=== PATIENT | female | born 1955 | race Caucasian/White ===

== ENCOUNTER 2017-04-11 22:29 | Inpatient (IN) | payer MEDICARE, OTHER ==
--- NOTE | ~2017-04-11 | DS ---
Discharge Summary [facility] [address] [place]. [address] NAME: CHILO GARCIA : 53 STATUS : ADM IN [facility]#: [id number] AGE: 62 ADM/REG DATE : 04/12/17 MR#: [id number] REPORT SERV DATE: 04/17/17 DICTATED BY: ERIC RAMESH DATE: 04/17/17 REPORT STATUS : Draft TRANSCRIBED BY: MODBrayan DATE: 04/17/17 ADMISSION DATE: 04/12/2017 DISCHARGE DATE: 04/17/2017 REASON FOR ADMISSION: Xabtc-cc-otuoakt COPD exacerbation, yujgy-eo-msoxihe hypercapnic hypoxic respiratory failure, requiring BiPAP. HISTORY OF PRESENT ILLNESS: Please refer to Dr. Javan Tyler's history and physical dated 04/12/2017, for complete details regarding the patient's admission. In brief, the patient is admitted to the hospitalist service to the intermediate care unit for COPD exacerbation and hypoxic respiratory failure. HOSPITAL COURSE: The patient had an uncomplicated hospital course. The patient was admitted to the [facility] for hypoxic hypercapnic respiratory failure. She was placed on BiPAP and given steroids for COPD exacerbation, started on doxycycline. She had responded very well to BiPAP. She had been on it for about two to three days. Dr. Cannon was taking care of her in the [facility], then I assumed care of this patient on 04/14/2017, at which point we transferred her out of the [facility] and she is back to her baseline of 2 L nasal cannula. She was at one point as high as 5 L. We were able to wean her down. She does have some diminished breath sounds on exam, which is likely her baseline. She has reached maximal hospitalization. We are arranging for a functioning CPAP machine for her to take home with her once that is arranged, she will be discharged. DISCHARGE DIAGNOSES: Ymrmm-sw-lwwgpzf hypercapnic hypoxic respiratory failure. Continue BiPAP. Now resolved. Now at baseline 2 L nasal cannula. Joprz-xv-fsxksgq chronic obstructive pulmonary disease exacerbation, obstructive sleep apnea, on CPAP. Morbid obesity, hyperlipidemia, hypothyroidism, generalized anxiety disorder. PROCEDURES: Include chest x-ray. DISCHARGE MEDICATIONS: Include Duonebs p.r.n. wheezing, aspirin 81 mg daily, Lipitor 40 mg at bedtime, Januvia 100 mg daily, Bumex 1 mg daily, bupropion 150 mg twice a day, carvedilol 37.5 mg twice a day, digoxin 0.25 mg daily, Flonase p.r.n., Synthroid 300 mcg daily, losartan 50 mg daily, Relafen 500 mg twice a day, Prilosec daily, Advair 250/50 one puff twice a day, Spiriva two puffs daily, Antivert, Zofran, diazepam p.r.n., [place] p.r.n. Spending over 30 minutes in discharge planning and coordination of care on Ms. Garcia. She will be discharged today if we can arrange for a new CPAP machine. DICTATED BY: MD ALISHA Lopez/CHAN Discharge Summary [address] [address] NAME: CHILO GARCIA : 53 STATUS : ADM IN [facility]#: [id number] AGE: 62 ADM/REG DATE : 04/12/17 MR#: [id number] REPORT SERV DATE: 04/17/17 DICTATED BY: ERIC RAMESH DATE: 04/17/17 REPORT STATUS : Draft TRANSCRIBED BY: CHAN DATE: 04/17/17 Eric Ramesh MD / [id number] CC: DO Clyde Reyes M.D.
--- NOTE | ~2017-04-11 | DS ---
Discharge Summary [facility] [address] [facility] [address] [place]. [address] NAME: CHILO GARCIA : 53 STATUS : DIS IN PAT#: [id number] AGE: 62 ADM/REG DATE : 04/12/17 MR#: [id number] REPORT SERV DATE: 04/19/17 DICTATED BY: ERIC RAMESH DATE: 04/18/17 REPORT STATUS : Draft TRANSCRIBED BY: CHAN DATE: 04/18/17 ADMISSION DATE: 04/12/2017 DISCHARGE DATE: 04/18/2017 ADDENDUM: REASON FOR ADMISSION: Acute on chronic COPD exacerbation; acute on chronic hypercapnic- hypoxic respiratory failure, requiring BiPAP. HOSPITAL COURSE: Please refer to my discharge dictation dated 04/17/2017 for complete details regarding the patient's hospitalization discharge. The patient was initially scheduled to be discharged on 04/17/2017, however, we were having issues with her CPAP machine. [facility] had dropped off a used CPAP machine, but the patient was concerned that her mask would not fit the machine. We finally were able to get in touch with [facility] who reassured us that the patient's tubing and mask would actually fit; however, there is not an attachment separate for her oxygen. We were unable to fix this issue until the patient gets a chemistry laboratory technician and has an outpatient sleep study done. We are making arrangements for that. The patient will be discharged today in a stable condition. Please refer my initial discharge dictation for complete details regarding the patient's diagnoses, medications, and procedures. This is Dr. Eric Ramesh spending over 30 minutes discharge planning and coordination of care on Ms Garcia. DICTATED BY: MD ALISHA Lopez/CHAN Eric Ramesh MD / [id number] CC: MD Clyde Lopez M.D.
--- NOTE | ~2017-04-11 | HP ---
History And Physical [facility] [id number] [place]. [address] NAME: CHILO LANCASTER : 53 STATUS : ADM IN [facility]#: [id number] AGE: 62 ADM/REG DATE : 04/12/17 MR#: [id number] REPORT SERV DATE: 04/12/17 DICTATED BY: CAROLINA WAY DATE: 04/12/17 REPORT STATUS : Draft TRANSCRIBED BY: MODBrayan DATE: 04/12/17 DATE OF ADMISSION: 04/12/2017 CHIEF COMPLAINT: A 62-year-old female, presenting with shortness of breath lethargy. HISTORY OF PRESENTING ILLNESS: The patient's history was obtained through an interview with the patient and son coupled with review of [facility] and [facility]. The patient states that about a week ago, she just began to feel "sick." She thought that she had pneumonia at that time, but did not seek out a physician's care and was not placed on any antibiotics. She also states that her CPAP machine stopped working about a week ago exacerbating her illness. She has had a cough productive of yellowish sputum. She has had shortness of breath characterized by dyspnea on exertion. She has had nausea, vomiting, fevers, and chills. Of uncertain importance to this presentation is the fact that her 17-year-old grandchild (who lives in her home) developed Repton spotted fever within the last month, although he has recovered well. The patient describes increasing lethargy, confusion. No headache. The patient has had chest discomfort that she describes "in my ribs," exacerbated by coughing, sharp quality, a 3 to 4/10 severity only. REVIEW OF SYSTEMS: Otherwise, a 14-point review of systems was obtained and was negative. PAST MEDICAL HISTORY: 1. COPD, on chronic nasal cannula oxygen. 2. Obstructive sleep apnea, but states that her CPAP has been broken for about a week. 3. Chronic pain management with chronic back pain. 4. Diabetes. 5. Gastroesophageal reflux disorder, colon polyps, seen by Dr. Khanna. 6. Elevated cholesterol. 7. Hypertension. 8. Coronary artery disease status post CABG in 2008, followed by Dr. Murillo. 9. Uterine cancer, status post hysterectomy in 1985. 10.Migraine headaches. PAST SURGICAL HISTORY: 1. CABG in 2008. 2. Bladder tack. 3. Hysterectomy. 4. Cholecystectomy. 5. Tubal ligation. History And Physical [address] [place]. [address] NAME: CHILO LANCASTER : 53 STATUS : ADM IN PAT#: [id number] AGE: 62 ADM/REG DATE : 04/12/17 MR#: [id number] REPORT SERV DATE: 04/12/17 DICTATED BY: CAROLINA WAY DATE: 04/12/17 REPORT STATUS : Draft TRANSCRIBED BY: CHAN DATE: 04/12/17 ALLERGIES: TO PENICILLIN. SOCIAL HISTORY: The patient is a smoker. She does not drink alcohol. She lives in [place], [place]. She is a and has three children. She lives with three of her grandchildren, ages 17, 19, and 21. FAMILY HISTORY: Both mother and father had COPD and were heavy smokers. CURRENT MEDICATIONS: Include albuterol inhaler, aspirin 81 mg p.o. daily, Lipitor 40 mg p.o. daily, Bumex 1 mg p.o. daily, Wellbutrin XR 150 mg p.o. b.i.d., Coreg 37.5 mg p.o. b.i.d., digoxin 0.25 mg p.o. daily, Flonase inhaled twice a day, Advair inhaled twice a day, Synthroid 300 mcg p.o. daily, Cozaar 50 mg p.o. daily, Antivert t.i.d. p.r.n., Relafen 500 mg p.o. b.i.d., Macrobid 100 mg p.o. b.i.d., Prilosec 40 mg p.o. daily, Zofran p.r.n., Januvia 100 mg p.o. daily, Spiriva inhaled daily. PHYSICAL EXAMINATION: VITAL SIGNS: Temperature 97.5, pulse 86, blood pressure 132/71, respiratory rate 23, and O2 saturation 94% on 2 L nasal cannula. GENERAL: An ill-appearing female, in distress from labored breathing and very lethargic as well. HEENT: Pupils are equal, round, and reactive to light. No conjunctival pallor. No scleral icterus. Nares are patent. Oropharynx is clear of obstruction. Moist mucous membranes. NECK: Trachea midline. No thyromegaly. LYMPHATICS: No cervical lymphadenopathy. No supraclavicular lymphadenopathy. RESPIRATORY: Scattered inspiratory and expiratory wheezes. No rhonchi. No rales. Labored respiratory effort, heaving with abdomen with each breath. CARDIOVASCULAR: Regular rate and rhythm. No murmurs, rubs, or gallops. No extremity edema is appreciated. ABDOMEN: Soft, nontender, nondistended. Normal bowel sounds auscultated throughout. No hepatosplenomegaly. DERMATOLOGIC: Warm and dry extremities. No pallor. No cyanosis. PSYCHIATRIC: Normal affect. Good mood. Alert and oriented x3. LABORATORY DATA: White blood cell count 10.4, hemoglobin 14, hematocrit 46, platelets 325. Sodium 142, potassium 3.8, chloride 98, bicarb 41, BUN 7, creatinine 0.56, glucose 133. Brain natriuretic peptide 76. Troponin negative. Procalcitonin negative. Lipase 153, lactic acid 0.9. ABG demonstrates a pH of 7.28, a PaCO2 of 92, a PaO2 of 71, and a bicarb of 42. STUDIES: 1. Chest x-ray by my own evaluation shows COPD changes with no acute abnormality otherwise. 2. EKG by my own evaluation shows sinus rhythm, no major abnormalities. ASSESSMENT AND PLAN: 1. Hypercapnic respiratory failure, placed on BiPAP in the [facility]. History And Physical [address] [address] NAME: CHILO LANCASTER : 53 STATUS : ADM IN [facility]#: [id number] AGE: 62 ADM/REG DATE : 04/12/17 MR#: [id number] REPORT SERV DATE: 04/12/17 DICTATED BY: CAROLINA WAY DATE: 04/12/17 REPORT STATUS : Draft TRANSCRIBED BY: MODBrayan DATE: 04/12/17 2. Chronic obstructive pulmonary disease exacerbation, placed on IV Solu-Medrol, duo- nebulizers, doxycycline. 3. Obstructive sleep apnea. The patient's CPAP "broke" one week ago. Case management to follow the patient to make certain that she has a CPAP available and ready to use when she is discharged from the hospital. SUHA/CHAN Carolina Way M.D. / [id number] CC: Jeaneth Love M.D.
[~2017-04-11 22:29] MED LIST: ACET500CAP PO; ASAB PO; BUM1 PO; BUPROPION 150 MG; COREG25 PO; DEPO-ESTRAD5 MG/1 ML IM; DEPO-ESTRADI5 MG/ML IM; FIBERCON PO; FLONASE NAS; LAN25 PO; LORTAB10 PO; MAXIMUM D3 PO; NEXIUM40 PO; NORCO1 TAB PO; NORV5 PO; NTG150 SL; PR25 PO; PRAVACHOL40 MG PO; PRIN20 PO; PROAIR HFA INH; SPIRIVA INH; SPIRO25 PO; SYMBICORT 160/41 INH INH; SYN1 PO; SYN125 PO; SYNTHROID175 MCG PO; TENORETIC1 TA1 PO; VALIUM10 MG PO; WELLXL150 PO; ZOCOR20 PO; [UNRECOGNIZED DRUG - REMARK] OR
[2017-04-11] MEDS ORDERED: FLONASE NAS (23:45)
[2017-04-11] MEDS ORDERED: COREG25 PO (23:45)
[2017-04-11] MEDS ORDERED: LAN25 PO (23:46)
[2017-04-11] MEDS ORDERED: BUM1 PO (23:46)
[2017-04-11] MEDS ORDERED: LIPITOR40 PO (23:46)
[2017-04-11] MEDS ORDERED: SYN1 PO (23:46)
[2017-04-11] MEDS ORDERED: PRILOSEC40 MG PO (23:46)
[2017-04-11] MEDS ORDERED: ADVAIR250 INH (23:47)
[2017-04-11] MEDS ORDERED: JANUVIA100 MG PO (23:47)
[2017-04-11] MEDS ORDERED: SPIRIVA RESPIMAT INH (23:47)
[2017-04-11] MEDS ORDERED: PROAIR HFA INH (23:47)
[2017-04-11] MEDS ORDERED: MACROBID PO (23:47)
[2017-04-11] MEDS ORDERED: WELLXL150 PO (23:48)
[2017-04-11] MEDS ORDERED: ZOFRAN4 PO (23:48)
[2017-04-11] MEDS ORDERED: RELA5 PO (23:48)
[2017-04-11] MEDS ORDERED: COZ50 PO (23:48)
[2017-04-11] MEDS ORDERED: MCZ25 PO (23:48)
[2017-04-11] MEDS ORDERED: ASAB PO (23:48)
[2017-04-12 00:30] LABS: BASOPHILS 0.1 %; BASOPHILS ABSOLUTE 0.01 10/3/uL (0.0-0.16); EOSINOPHILS 1.3 %; EOSINOPHILS ABSOLUTE 0.14 10/3/uL (0.0-0.53); ER CBC TAT 0 Hrs 00 Mins; HEMATOCRIT 46.4 % (36.0-48.0); HEMOGLOBIN 14.5 g/dL (12.0-16.0); IMMATURE GRANULOCYTES 0.5 %; IMMATURE GRANULOCYTES ABSOLUTE 0.05 10/3/uL (0.0-0.11); LYMPHOCYTES 19.4 %; LYMPHOCYTES ABSOLUTE 2.01 10/3/uL (0.67-4.30); MEAN CORPUS HGB CONC 31.3 g/dL (32.0-36.0); MEAN CORPUSCULAR HEMOGLOB 28.1 pg (26.0-34.0); MEAN CORPUSCULAR VOLUME 89.9 fL (80-100); MEAN PLATELET VOLUME 10.8 fL (9.2-13.0); MONOCYTES 6.1 %; MONOCYTES ABSOLUTE 0.63 10/3/uL (0.21-1.20); NEUTROPHILS 72.6 %; NEUTROPHILS ABSOLUTE 7.54 10/3/uL (2.02-8.40); PLATELET COUNT 325 10/3/uL (150-400); RBC DISTRIBUTION WIDTH 12.8 % (12.0-16.0); RED CELL COUNT 5.16 10/6/uL (4.0-5.6); WHITE BLOOD CELLS 10.4 10/3/uL (4.5-10.5)
[2017-04-12 00:32] LABS: MANUAL DIFF NO %
[2017-04-12 00:33] LABS: ALLENS TEST Pos; BE (BASE EXCESS) 12.3 MEQ/L (0 +/- 2.5); BIPAP 16/5 cm.H2O; CARBOXYHEMOGLOBIN 3.1 % (0-3); HCO3 (ACTUAL BICARBONATE) 42.9 MEQ/L (23-27); HEMOBLOGIN CONTENT 14.3 G/DL (12-16); INSTRUMENT SERIAL # 8087; METHEMOGLOBIN 0.1 % (0-3); O2 CONTENT 18.4 VOL% (18-24); OPERATOR ID 17589; PCO2 (CO2 TENSION) 88 MMHG (35-45); PO2 (O2 TENSION) 73 MMHG (79-93); SAMPLE Arterial; pH 7.31 (7.37-7.43)
[2017-04-12 00:44] LABS: PARTIAL THROMBO TIME 29.4 SEC (22.5-37.2); PROTIME (NOT ORD) 13.5 SEC (12.0-14.5)
[2017-04-12 00:48] LABS: LACTATE 0.9 MMOL/L (0.3-2.4)
[2017-04-12 00:57] LABS: BUN (BLOOD UREA NITROGEN) 7 MG/DL (6-23); CALCIUM, SERUM 8.7 MG/DL (8.5-10.4); CHLORIDE, SERUM 98 MMOL/L (96-112); CREATININE 0.56 MG/DL (0.55-1.02); GFR AFRICAN AMERICAN 115 ML/MIN (>=60); GFR NON AFRICAN AMERICAN 99 ML/MIN (>=60); GLUCOSE, SERUM 133 MG/DL (60-99); POTASSIUM, SERUM 3.8 MMOL/L (3.5-5.3); SODIUM, SERUM 142 MMOL/L (135-148); TROPONIN I <0.02 NG/ML (<0.05)
[2017-04-12 00:58] LABS: CHEST PAIN PROFILE TAT 0 Hrs 29 Mins; CO2 (CARBON DIOXIDE) 41 MMOL/L (24-34)
[2017-04-12 00:59] LABS: DIGOXIN 0.2 NG/ML (0.8-2.0)
[2017-04-12 01:15] LABS: PROCALCITONIN <0.05 ng/mL (<0.5)
[2017-04-12 01:58] LABS: ASCORBIC ACID (UR NOT ORDER) NEG (NEG); BILIRUBIN, URINE NEGATIVE (NEG); ER URINALYSIS TAT 0 Hrs 00 Mins; KETONE, URINE NEGATIVE (NEG); LEUKOCYTE ESTERASE(NOT OR NEG (NEG); NITRITE (URINE) NEG (NEG); WBC (NOT ORDERED) (RFLEX) 2 (0-5)
[2017-04-12 02:22] LABS: ALLENS TEST Pos; BE (BASE EXCESS) 12.5 MEQ/L (0 +/- 2.5); BIPAP 20/5 cm.H2O; CARBOXYHEMOGLOBIN 2.7 % (0-3); HCO3 (ACTUAL BICARBONATE) 42.4 MEQ/L (23-27); HEMOBLOGIN CONTENT 14.5 G/DL (12-16); INSTRUMENT SERIAL # 8087; O2 CONTENT 18.7 VOL% (18-24); OPERATOR ID 17589; PCO2 (CO2 TENSION) 82 MMHG (35-45); PO2 (O2 TENSION) 71 MMHG (79-93); SAMPLE Arterial; pH 7.33 (7.37-7.43)
[2017-04-12 02:23] LABS: BE (BASE EXCESS) 11.2 MEQ/L (0 +/- 2.5); CARBOXYHEMOGLOBIN 3.3 % (0-3); DEVICE NC; HCO3 (ACTUAL BICARBONATE) 42.3 MEQ/L (23-27); HEMOBLOGIN CONTENT 14.6 G/DL (12-16); INSTRUMENT SERIAL # 8087; O2 CONTENT 18.7 VOL% (18-24); OPERATOR ID 17589; PCO2 (CO2 TENSION) 92 MMHG (35-45); PO2 (O2 TENSION) 71 MMHG (79-93); SAMPLE Arterial; pH 7.28 (7.37-7.43)
[2017-04-12 02:24] LABS: ALLENS TEST Pos
[2017-04-12 08:38] LABS: BASOPHILS 0.1 %; BASOPHILS ABSOLUTE 0.01 10/3/uL (0.0-0.16); EOSINOPHILS 0.1 %; EOSINOPHILS ABSOLUTE 0.01 10/3/uL (0.0-0.53); ER CBC TAT 0 Hrs 05 Mins; HEMATOCRIT 42.7 % (36.0-48.0); HEMOGLOBIN 13.5 g/dL (12.0-16.0); IMMATURE GRANULOCYTES 0.5 %; IMMATURE GRANULOCYTES ABSOLUTE 0.05 10/3/uL (0.0-0.11); LYMPHOCYTES ABSOLUTE 0.67 10/3/uL (0.67-4.30); MEAN CORPUS HGB CONC 31.6 g/dL (32.0-36.0); MEAN CORPUSCULAR HEMOGLOB 28.5 pg (26.0-34.0); MEAN CORPUSCULAR VOLUME 90.1 fL (80-100); MEAN PLATELET VOLUME 10.8 fL (9.2-13.0); MONOCYTES 1.9 %; MONOCYTES ABSOLUTE 0.18 10/3/uL (0.21-1.20); NEUTROPHILS 90.4 %; NEUTROPHILS ABSOLUTE 8.65 10/3/uL (2.02-8.40); PLATELET COUNT 277 10/3/uL (150-400); RBC DISTRIBUTION WIDTH 12.8 % (12.0-16.0); RED CELL COUNT 4.74 10/6/uL (4.0-5.6); WHITE BLOOD CELLS 9.6 10/3/uL (4.5-10.5)
[2017-04-12 08:41] LABS: MANUAL DIFF NO %
[2017-04-12 08:45] LABS: PARTIAL THROMBO TIME 26.3 SEC (22.5-37.2)
[2017-04-12 08:46] LABS: INTERNATIONAL NORMAL RATI 1.1 UNITS (-); PROTIME (NOT ORD) 13.7 SEC (12.0-14.5)
[2017-04-12 08:50] LABS: INSTRUMENT SERIAL # 8087; PCO2 (CO2 TENSION) 66 MMHG (35-45); PO2 (O2 TENSION) 62 MMHG (79-93)
[2017-04-12 08:51] LABS: BIPAP 20/5 cm.H2O; CARBOXYHEMOGLOBIN 2.4 % (0-3); HCO3 (ACTUAL BICARBONATE) 39.9 MEQ/L (23-27); HEMOBLOGIN CONTENT 14.9 G/DL (12-16); METHEMOGLOBIN 0.1 % (0-3); SAMPLE Arterial
[2017-04-12 09:15] LABS: A/G RATIO 0.8 (0.7-1.9); ALBUMIN 3.3 G/DL (3.5-5.0); ALKALINE PHOSPHATASE 136 U/L (45-117); BUN (BLOOD UREA NITROGEN) 9 MG/DL (6-23); CALCIUM, SERUM 8.6 MG/DL (8.5-10.4); CHLORIDE, SERUM 99 MMOL/L (96-112); CO2 (CARBON DIOXIDE) 32 MMOL/L (24-34); CREATININE 0.57 MG/DL (0.55-1.02); GFR AFRICAN AMERICAN 114 ML/MIN (>=60); GFR NON AFRICAN AMERICAN 99 ML/MIN (>=60); GLOBULIN 3.9 G/DL (2.5-4.1); GLUCOSE, SERUM 172 MG/DL (60-99); POTASSIUM, SERUM 4.4 MMOL/L (3.5-5.3); SGPT(ALT) 28 U/L (5-65); SODIUM, SERUM 137 MMOL/L (135-148); TOTAL BILIRUBIN 0.9 MG/DL (0-1.2); TOTAL PROTEIN 7.2 G/DL (6.0-8.5); TROPONIN I <0.02 NG/ML (<0.05); ULTRASENSITIVE TSH 0.848 MCIU/ML (0.358-3.740)
[2017-04-12 09:16] LABS: DIGOXIN 0.2 NG/ML (0.8-2.0); SGOT(AST) 17 U/L (5-40)
[2017-04-14 04:13] LABS: CARBOXYHEMOGLOBIN 0.9 % (0-3); INSTRUMENT SERIAL # 8083; PCO2 (CO2 TENSION) 52 MMHG (35-45); PO2 (O2 TENSION) 78 MMHG (79-93); pH 7.41 (7.37-7.43)
[2017-04-14 04:14] LABS: DEVICE NC; HEMOBLOGIN CONTENT 13.3 G/DL (12-16); O2 CONTENT 17.6 VOL% (18-24); OPERATOR ID 13861; SAMPLE Arterial
[2017-04-14 05:19] LABS: BASOPHILS 0.2 %; BASOPHILS ABSOLUTE 0.03 10/3/uL (0.0-0.16); EOSINOPHILS 0.5 %; EOSINOPHILS ABSOLUTE 0.07 10/3/uL (0.0-0.53); HEMOGLOBIN 13.3 g/dL (12.0-16.0); IMMATURE GRANULOCYTES 0.4 %; IMMATURE GRANULOCYTES ABSOLUTE 0.06 10/3/uL (0.0-0.11); LYMPHOCYTES 26.1 %; LYMPHOCYTES ABSOLUTE 3.55 10/3/uL (0.67-4.30); MEAN CORPUS HGB CONC 31.7 g/dL (32.0-36.0); MEAN CORPUSCULAR HEMOGLOB 27.7 pg (26.0-34.0); MEAN PLATELET VOLUME 11.4 fL (9.2-13.0); MONOCYTES 8.9 %; MONOCYTES ABSOLUTE 1.21 10/3/uL (0.21-1.20); NEUTROPHILS 63.9 %; PLATELET COUNT 290 10/3/uL (150-400); RBC DISTRIBUTION WIDTH 13.7 % (12.0-16.0); RED CELL COUNT 4.81 10/6/uL (4.0-5.6)
[2017-04-14 05:22] LABS: MANUAL DIFF NO %; MEAN CORPUSCULAR VOLUME 87.3 fL (80-100); WHITE BLOOD CELLS 13.6 10/3/uL (4.5-10.5)
[2017-04-14 05:26] LABS: CALCIUM, SERUM 9.1 MG/DL (8.5-10.4); CHLORIDE, SERUM 96 MMOL/L (96-112); CREATININE 0.81 MG/DL (0.55-1.02); GFR AFRICAN AMERICAN 90 ML/MIN (>=60); GFR NON AFRICAN AMERICAN 77 ML/MIN (>=60); SODIUM, SERUM 139 MMOL/L (135-148)
[2017-04-14 05:27] LABS: BUN (BLOOD UREA NITROGEN) 28 MG/DL (6-23); CO2 (CARBON DIOXIDE) 40 MMOL/L (24-34); GLUCOSE, SERUM 119 MG/DL (60-99); POTASSIUM, SERUM 3.4 MMOL/L (3.5-5.3)
[2017-04-14 21:04] LABS: POTASSIUM, SERUM 4.5 MMOL/L (3.5-5.3)
[2017-04-15] MEDS ORDERED: VALIUM10 MG PO (10:16)
[2017-04-15] MEDS ORDERED: NORCO1 TAB PO (10:18)
[2017-04-16 05:17] LABS: BASOPHILS 0.1 %; BASOPHILS ABSOLUTE 0.01 10/3/uL (0.0-0.16); EOSINOPHILS 0.4 %; EOSINOPHILS ABSOLUTE 0.05 10/3/uL (0.0-0.53); HEMATOCRIT 41.5 % (36.0-48.0); HEMOGLOBIN 13.2 g/dL (12.0-16.0); IMMATURE GRANULOCYTES 0.6 %; IMMATURE GRANULOCYTES ABSOLUTE 0.08 10/3/uL (0.0-0.11); LYMPHOCYTES 20.8 %; LYMPHOCYTES ABSOLUTE 2.89 10/3/uL (0.67-4.30); MEAN CORPUS HGB CONC 31.8 g/dL (32.0-36.0); MEAN CORPUSCULAR HEMOGLOB 27.6 pg (26.0-34.0); MEAN CORPUSCULAR VOLUME 86.8 fL (80-100); MEAN PLATELET VOLUME 11.4 fL (9.2-13.0); MONOCYTES 7.5 %; MONOCYTES ABSOLUTE 1.04 10/3/uL (0.21-1.20); NEUTROPHILS 70.6 %; NEUTROPHILS ABSOLUTE 9.84 10/3/uL (2.02-8.40); PLATELET COUNT 302 10/3/uL (150-400); RBC DISTRIBUTION WIDTH 13.8 % (12.0-16.0); RED CELL COUNT 4.78 10/6/uL (4.0-5.6); WHITE BLOOD CELLS 13.9 10/3/uL (4.5-10.5)
[2017-04-16 05:18] LABS: MANUAL DIFF NO %
[2017-04-16 05:29] LABS: BUN (BLOOD UREA NITROGEN) 31 MG/DL (6-23); CALCIUM, SERUM 9.1 MG/DL (8.5-10.4); CHLORIDE, SERUM 95 MMOL/L (96-112); CO2 (CARBON DIOXIDE) 37 MMOL/L (24-34); GFR AFRICAN AMERICAN 79 ML/MIN (>=60); GFR NON AFRICAN AMERICAN 68 ML/MIN (>=60); POTASSIUM, SERUM 3.9 MMOL/L (3.5-5.3); SODIUM, SERUM 136 MMOL/L (135-148)
[2017-04-16 05:30] LABS: GLUCOSE, SERUM 183 MG/DL (60-99)
[2017-04-18] MEDS ORDERED: DUONEB INH (09:51)
== END 2017-04-18 15:23 | disposition home or self-care (01) | DRG 189 ==
LOC: ER 22:29 → ER/OF 04-12 04:40 → IMCU 04-12 10:22 → 5SO 04-15 13:05
PROVIDERS: Hospitalist; Internal Medicine; Nurse Practitioner
DX: J96.01 Acute respiratory failure with hypoxia (principal); J44.1 Chronic obstructive pulmonary disease with (acute) exacerbation; Z99.81 Dependence on supplemental oxygen; G47.33 Obstructive sleep apnea (adult) (pediatric); E11.9 Type 2 diabetes mellitus without complications; K21.9 Gastro-esophageal reflux disease without esophagitis; I25.10 Atherosclerotic heart disease of native coronary artery without angina pectoris; Z95.1 Presence of aortocoronary bypass graft; Z85.42 Personal history of malignant neoplasm of other parts of uterus; Z90.710 Acquired absence of both cervix and uterus; Z90.49 Acquired absence of other specified parts of digestive tract; Z98.890 Other specified postprocedural states; Z88.0 Allergy status to penicillin; F17.210 Nicotine dependence, cigarettes, uncomplicated; Z79.82 Long term (current) use of aspirin; Z79.899 Other long term (current) drug therapy; E66.01 Morbid (severe) obesity due to excess calories
CPT/HCPCS: 36600; 71010; 80048; 80053; 80162; 81001; 82805; 82962; 83036; 83605; 83690; 83735; 83880; 84132; 84145; 84443; 84484; 85025; 85610; 85730; 87040; 87449; 87641; 93005; 94640; 94660; 96374; 97110-GO; 97162-GP; 97165-GO; 97530-GP; 97535-GO; 99291; A9270-GY; G8978-CL-GP; G8979-CJ-GP; G8987-CK-GO; G8988-CJ-GO; J2920; J2930; J3475